=== PATIENT | male | born 1980 | race Two or more races ===

== ENCOUNTER 2021-03-17 12:52 | Emergency (ER) | payer SELFPAY ==
[~2021-03-17] VITALS: Ht 180.3 cm; Wt 115.7 kg
[2021-03-17 15:19] VITALS: BP 134/92
[2021-03-17] MEDS ORDERED: METH4PAK PO (16:57)
[2021-03-17] MEDS ORDERED: PROM1SOL4 PO (16:57)
[2021-03-17] MEDS ORDERED: AZIT500T66 PO (16:58)
== END 2021-03-17 17:26 | disposition home or self-care (01) ==
LOC: ER 12:52
DX: J03.90 Acute tonsillitis, unspecified (principal); E11.9 Type 2 diabetes mellitus without complications; E78.5 Hyperlipidemia, unspecified; Z20.822 Contact with and (suspected) exposure to COVID-19
CPT/HCPCS: 36415; 71045; 87426; 93005